=== PATIENT | female | born 1965 | race Hispanic/Latino ===

== ENCOUNTER 2018-07-19 11:00 | Emergency (ER) | payer OTHER ==
[~2018-07-19] VITALS: Ht 142.2 cm; Wt 42.6 kg
[~2018-07-19 11:00] MED LIST: Budesonide IH
[2018-07-19] MEDS ORDERED: BELLADONNA ALK/PHENOBARBITAL 5 ML UDC PO STA (11:22)
[2018-07-19] MEDS ORDERED: SODIUM CHLORIDE 0.9% 1000ML 1,000 ML IV STA (11:22)
[2018-07-19] MEDS ORDERED: PANTOPRAZOLE 40 MG 10ML VIAL IV STA (11:22)
[2018-07-19] MEDS ORDERED: MAGNESIUM/ALUMINUM/SIMETHICONE 30 ML UDC PO ONE (11:30)
[2018-07-19] MEDS ORDERED: LIDOCAINE VISC 2% SOLN 15 ML UDC PO ONE (11:30)
[2018-07-19] MEDS ORDERED: DIATRIZOATE MEGL/DIATRIZOA SOD 30 ML BTL PO ONE (11:36)
[2018-07-19 11:42] LABS: BASOPHILS % 0.2 % (0.0-1.0); HEMATOCRIT 37.2 % (34.2-44.1); HEMOGLOBIN 12.8 g/dL (12.0-16.0); LYMPHOCYTES # (AUTO) 0.5 (1.0-3.2); LYMPHOCYTES % 3.8 % (18.0-39.1); MEAN CORPUSCULAR HEMOGLOBIN 28.2 pg (28-32); MEAN CORPUSCULAR HGB CONC 34.4 g/dL (31-35); MEAN CORPUSCULAR VOLUME 81.9 fL (81-99); MONOCYTES # (AUTO) 0.8 (0.2-0.8); MONOCYTES % 6.7 % (4.4-11.3); NEUTROPHILS # (AUTO) 10.8 (2.1-6.9); NEUTROPHILS % 88.9 % (38.7-80.0); PLATELET COUNT 216 x10e3/uL (140-360); RED BLOOD COUNT 4.54 x10e6/uL (3.6-5.1); RED CELL DISTRIBUTION WIDTH 14.1 % (11.7-14.4)
[2018-07-19 12:12] LABS: ALANINE AMINOTRANSFERASE 1352 IU/L (0-55); ALBUMIN 4.3 g/dL (3.5-5.0); ALKALINE PHOSPHATASE 392 IU/L (40-150); ANION GAP 17.8 mmol/L (8-16); BLOOD UREA NITROGEN 27 mg/dL (7-26); BUN/CREATININE RATIO 32 (6-25); CALCIUM 10.9 mg/dL (8.4-10.2); CARBON DIOXIDE 23 mmol/L (22-29); CHLORIDE 103 mmol/L (98-107); CREATININE, SERUM 0.85 mg/dL (0.57-1.11); EST GLOMERULAR FILTRATION RATE > 60 ML/MIN (60-); GLUCOSE 164 mg/dL (74-118); POTASSIUM 3.8 mmol/L (3.5-5.1); SODIUM 140 mmol/L (136-145)
--- NOTE | 2018-07-19 12:21 | Diagnostic Imaging Report ---
EXAMINATION: CHEST SINGLE (PORTABLE) INDICATION: Fever COMPARISON: None FINDINGS: TUBES and LINES: None. LUNGS: Lungs are well inflated. Lungs are clear. There is no evidence of pneumonia or pulmonary edema. PLEURA: No pleural effusion or pneumothorax. HEART AND MEDIASTINUM: The cardiomediastinal silhouette is unremarkable. BONES AND SOFT TISSUES: No acute osseous lesion. Soft tissues are unremarkable. UPPER ABDOMEN: No free air under the diaphragm. IMPRESSION: No acute thoracic abnormality. No evidence of pneumonia. Signed by: Dr. Adam Wilson MD on 07/19/2018 12:17 PM
--- NOTE | 2018-07-19 13:15 | Diagnostic Imaging Report ---
EXAM: CT Abdomen and Pelvis WITH contrast INDICATION: Abdominal Pain COMPARISON: None. TECHNIQUE: Abdomen and pelvis were scanned utilizing a multidetector helical scanner from the lung base to the pubic symphysis after administration of IV contrast. Coronal and sagittal reformations were obtained. Routine protocol was performed. Scan was performed when during portal venous phase. IV CONTRAST: 100 mL of Isovue 370 ORAL CONTRAST: 30 cc of Gastrograffin and 870 cc of Water COMPLICATIONS: None RADIATION DOSE: Total DLP: (DLP x 0.015 x size factor) mGy*cm Estimated effective dose: (DLP x 0.015 x size factor) mSv CTDIvol has been reviewed. It is below the limits set by the Radiation Protocol Committee (RPC). FINDINGS: LINES and TUBES: None. LOWER THORAX: Unremarkable HEPATOBILIARY: No evidence of focal lesion. There is intra- and extra- hepatic biliary dilation likely secondary to post-cholecystectomy changes. SPLEEN: No splenomegaly. PANCREAS: No focal masses or ductal dilatation. ADRENALS: No adrenal nodules KIDNEYS/URETERS: Kidneys enhance symmetrically. No evidence of hydronephrosis, solid mass, or stone. GI TRACT: No evidence of wall thickening or distension. Appendix is not clearly identified. There is however no fat stranding or adenopathy in the right lower quadrant to suggest appendicitis. PELVIC ORGANS/BLADDER: Unremarkable. LYMPH NODES: No lymphadenopathy. VESSELS: There is moderate atherosclerotic disease in the aorta and major arterial branches. PERITONEUM / RETROPERITONEUM: No free air or fluid. BONES AND SOFT TISSUES: No acute bony findings. CONCLUSION: No acute findings in the abdomen or pelvis. Status post cholecystectomy. Signed by: Dr. Adam Wilson MD on 07/19/2018 1:12 PM
[2018-07-19] MEDS ORDERED: ONDANSETRON HCL INJ 2 MG/ML VIAL IV STA (13:21)
[2018-07-19 13:41] LABS: CLARITY,URINE SL CLOUDY (CLEAR); COLOR,URINE YELLOW (YELLOW); LEUKOCYTE ESTERASE ,URINE TRACE (NEGATIVE); NITRITE,URINE NEGATIVE (NEGATIVE); PROTEIN,URINE DIPSTICK 2+ (NEGATIVE)
[2018-07-19 13:42] LABS: BILIRUBIN,URINE 2+ (NEGATIVE); KETONES,URINE NEGATIVE (NEGATIVE); URINE UROBILINOGEN 1 mg/dL (0.2 - 1)
[2018-07-19 13:44] LABS: WBC,URINE (MAN) 0-5 /HPF (0-5)
[2018-07-19 13:45] LABS: BACTERIA,URINE MODERATE /HPF; EPITHELIAL CELLS,URINE MODERATE /LPF
[2018-07-19 13:48] LABS: AMYLASE 117 U/L (25-125); LIPASE 133 U/L (8-78)
--- NOTE | 2018-07-19 16:39 | Diagnostic Imaging Report ---
EXAM: MRI of the abdomen without contrast with MRCP INDICATION: Choledocholithiasis. COMPARISON: None. Correlation with CT abdomen dated 07/19/2018. TECHNIQUE: Multiplanar and multisequence imaging was performed of the abdomen. T1 and T2-weighted images were obtained with and without contrast. T1-weighted in and [id number]. Diffusion-weighted imaging was also performed. Primo technique: Multiplanar, multisequence MRCP was performed, with sequences including coronal turbo spin-echo T1-weighted scans, [facility] MRCP scans, coronal spin, coronal MPR 2, [facility], [facility] MRCP [place]. Discussion: LOWER THORAX: Unremarkable. HEPATOBILIARY: No focal hepatic lesions. Mild central intrahepatic biliary dilatation. Mild diffuse dilatation of the common duct up to 9.5 mm in diameter. No filling defects within the common hepatic or common bile ducts. No evidence of strictures. GALLBLADDER: Status post cholecystectomy. SPLEEN: No splenomegaly. PANCREAS: No focal masses or ductal dilatation. ADRENALS: No adrenal nodules KIDNEYS/URETERS: Kidneys enhance symmetrically. No hydronephrosis. No cystic or solid mass lesions. No stones. GI TRACT: No abnormal distention, wall thickening, or evidence of bowel obstruction. LYMPH NODES: No lymphadenopathy. VESSELS: Unremarkable. PERITONEUM / RETROPERITONEUM: No free air or fluid. BONES: Unremarkable. SOFT TISSUES: Unremarkable. IMPRESSION: Mild intra and extrahepatic biliary dilatation suggestive of reservoir status post cholecystectomy. No evidence of choledocholithiasis. Signed by: Dr. Tra Rosa M.D. on 07/19/2018 4:35 PM
[2018-07-19 17:11] VITALS: BP 162/77
[2018-07-19] MEDS ORDERED: IOPAMIDOL 370 MG/ML 200 ML INFUS..BTL INJ ONE (18:40)
[2018-07-19] MEDS ORDERED: SODIUM CHLORIDE 0.9% 50ML 50 ML ONE (18:40)
== END 2018-07-19 17:26 | disposition home or self-care (01) ==
LOC: ER 11:00
DX: R10.13 Epigastric pain (principal); R11.0 Nausea; K29.00 Acute gastritis without bleeding
CPT/HCPCS: 36415; 71045; 74177; 74181; 80053; 81001; 82150; 83690; 85025; 87040; 87071; 87086; 87186; 87205; 93005; 99284; J2405; J7030; Q9967

== ENCOUNTER 2019-07-18 13:10 | Emergency (ER) | payer OTHER ==
[~2019-07-18] VITALS: Ht 142.2 cm; Wt 42.6 kg
--- OUTSIDE RECORDS SUMMARY | 2019-07-18 13:14 | XMS REPORT ---
Author Author [facility] Address Unknown Phone Unavailable Care Team Providers Care Drier And Pulverizer Tender Name Role Phone Jair HESS Unavailable Unavailable Payers Payer Name Policy Type Policy Number Effective Date Expiration Date Problems This patient has no known problems. Allergies, Adverse Reactions, Alerts Allergy Name Allergy Type Status Severity Reaction(s) Onset Date Inactive Date Treating Clinician Comments No Known Allergies DA Active U 2019-07-09 00:00:00 No Known Allergies DA Active U 2016-06-06 00:00:00 Medications This patient has no known medications. Results Test Description Test Time Test Comments Text Results Atomic Results Result Comments - CT MAXIFAC W/CONTRAST 2019-07-09 11:40:00 Name: REBEL VELASQUEZ [facility] : 1965 Age/S: 54 / F [address] [facility]: [id number] Loc: [place] [address] Phys: Miesha Membreno NP Acct: [id number] Dis Date: Status: REG ER PHONE #: [phone] Exam Date: 07/09/2019 1130 FAX #: [phone] Reason: swelling of right side of lips and right maxill EXAMS: CPT CODE: [id number] CT MAXIFAC W/CONTRAST 49877 REASON FOR EXAM: swelling of right side of lips and right maxilla EXAM ORDER DATE: 07/09/2019 8:52 AM Ordering MAidan: Miesha Membreno NP PROCEDURE: - CT MAXIFAC W/CONTRAST FINDINGS: CT images of the face were obtained with IV contrast at 2.5 mm thickness. Dose modulation, iterative reconstruction, and/or weight based adjustment of the MA/KV was utilized to reduce the radiation dose to as low as reasonably achievable. The globes are intact. The orbital elliott are unremarkable. The nasal bone is unremarkable. The mandibles are within normal limits. No evidence of facial fracture The visualized paranasal sinuses are well aerated IMPRESSION: Minimal soft tissue swelling in the right upper lip. No evidence of abscess or enhancing lesion at 1140 Reported and signed by: Yeison Bahena M.D. CC: Miesha Membreno NP; Gayatri Vazquez MD; Ken Cha MD Technologist:Jamar Bo RT(R),(MR),(CT) CTDI: DLP: Trnscb Date/Time: 07/09/2019 (1140) t.SDR.VTL Orig Print D/T: S: 07/09/2019 (4982) PAGE 1 Signed Report BASIC METABOLIC PANEL 2019-07-09 11:06:00 SODIUM (test code=NA) 137 mmol/L 136-145 POTASSIUM (test code=K) 4.8 mmol/L 3.5-5.1 CHLORIDE (test code=CL) 108.0 mmol/L 98-107 CARBON DIOXIDE (test code=CO2) 24.0 mmol/L 21-32 ANION GAP (test code=GAP) 9.8 10-20 GLUCOSE (test code=GLU) 71 mg/dL 74-106 BLOOD UREA NITROGEN (test code=BUN) 27 mg/dL 7-18 GLOMERULAR FILTRATION RATE (test code=GFR) > 60 mL/min >=60 Estimated GFR by using Modified MDRD formula.Chronic kidney disease is defined as either kidney damageor GFR <60 mL/min/1.73 m2 for >3 months. CREATININE (test code=CREAT) 0.90 mg/dL 0.55-1.02 Note change in reference range due to change in reagent. BUN/CREATININE RATIO (test code=BUN/CREA) 30.0 10-20 CALCIUM (test code=CA) 9.3 mg/dL 8.5-10.1 BASIC METABOLIC [id number] 11:02:00* Test Item Value Reference Range Comments SODIUM (test code=NA) 137 mmol/L 136-145 POTASSIUM (test code=K) 4.8 mmol/L 3.5-5.1 CHLORIDE (test code=CL) 108.0 mmol/L 98-107 CARBON DIOXIDE (test code=CO2) mmol/L 21-32 ANION GAP (test code=GAP) 10-20 GLUCOSE (test code=GLU) mg/dL 74-106 BLOOD UREA NITROGEN (test code=BUN) mg/dL 7-18 GLOMERULAR FILTRATION RATE (test code=GFR) mL/min >=60 CREATININE (test code=CREAT) mg/dL 0.55-1.02 BUN/CREATININE RATIO (test code=BUN/CREA) 10-20 CALCIUM (test code=CA) mg/dL 8.5-10.1 CBC W/O [id number] 10:50:00* Test Item Value Reference Range Comments WHITE BLOOD CELL (test code=WBC) 7.9 K/mm3 4.5-12.5 RED BLOOD CELL (test code=RBC) 4.65 mill/mm3 3.7-5.2 HEMOGLOBIN (test code=HGB) 12.6 gram/dL 11.5-15.5 HEMATOCRIT (test code=HCT) 38.9 % 36.0-46.0 MEAN CELL VOLUME (test code=MCV) 83.7 fL 80-98 MEAN CELL HGB (test code=MCH) 27.1 picogram 27.0-33.0 MEAN CELL HGB CONCETRATION (test code=MCHC) 32.4 gram/dL 33.0-36.0 RED CELL DISTRIBUTION WIDTH (test code=RDW) 14.5 % 11.6-16.2 PLATELET COUNT (test code=PLT) 108 K/mm3 150-450 MEAN PLATELET VOLUME (test code=MPV) 12.8 fL 6.7-11.0 CBC W/O [id number] 10:49:00* Test Item Value Reference Range Comments WHITE BLOOD CELL (test code=WBC) K/mm3 4.5-12.5 RED BLOOD CELL (test code=RBC) mill/mm3 3.7-5.2 HEMOGLOBIN (test code=HGB) 12.6 gram/dL 11.5-15.5 HEMATOCRIT (test code=HCT) 38.9 % 36.0-46.0 MEAN CELL VOLUME (test code=MCV) fL 80-98 MEAN CELL HGB (test code=MCH) picogram 27.0-33.0 MEAN CELL HGB CONCETRATION (test code=MCHC) gram/dL 33.0-36.0 RED CELL DISTRIBUTION WIDTH (test code=RDW) % 11.6-16.2 PLATELET COUNT (test code=PLT) K/mm3 150-450 MEAN PLATELET VOLUME (test code=MPV) fL 6.7-11.0 [id number] 08:43:00* Test Item Value Reference Range Comments GLUBED (test code=GLUBED) 107 mg/dL 74-106 Performed by certified cnc router operator at [facility] MRI MRCP [id number] 16:25:00 [place] [address] Patient Name: REBEL VELASQUEZ MR #: [id number] : 1965 Age/Sex: 53/F Req #: [id number] Adm Physician: Ordered by: JACOBO HESS MD Report #: [id number] Location: ER Room/Bed: Procedure: [id number] MRI/MRI MRCP WO Exam Date: Exam Time: REPORT STATUS: Signed EXAM: MRI of the abdomen without contrast with MRCP INDICATION: Choledocholithias is. COMPARISON: None. Correlation with CT abdomen dated 07/19/2018. T ECHNIQUE: Multiplanar and multisequence imaging was performed of the abdomen. T1 and T2-weighted images were obtained with and without contrast. T1-weighted in and [id number]-[id number]. Diffusion-weighted imaging was also performed. M.R.C. P. technique: Multiplanar, multisequence MRCP was performed, with sequences in cluding coronal turbo spin-echo T1-weighted scans, [facility] MRCP scans, coronal spi n, coronal MPR 2, [facility]CP 3D HR, [facility] MRCP [place]. Discussion: LOWER THO RAX: Unremarkable. HEPATOBILIARY: No focal hepatic lesions. Mild stanley tral intrahepatic biliary dilatation. Mild diffuse dilatation of the common du ct up to 9.5 mm in diameter. No filling defects within the common hepatic or c ommon bile ducts. No evidence of strictures. GALLBLADDER: Status post cho lecystectomy. SPLEEN: No splenomegaly. PANCREAS: No focal masses or d uctal dilatation. ADRENALS: No adrenal nodules KIDNEYS/URETERS: Kidneys enhance symmetrically. No hydronephrosis. No cystic or solid mass les ions. No stones. GI TRACT: No abnormal distention, wall thickening, or radha dence of bowel obstruction. LYMPH NODES: No lymphadenopathy. VESSELS: Unremarkable. PERITONEUM / RETROPERITONEUM: No free air or fluid. BONES: Unremarkable. SOFT TISSUES: Unremarkable. IMPRE SSION: Mild intra and extrahepatic biliary dilatation suggestive of reservo ir status post cholecystectomy. No evidence of choledocholithiasis. Jadyn d by: Dr. Tra Pineda M.D. on 07/19/2018 4:35 PM Dictated By: ZACHARIAH PINEDA MD, MD 1 635 Transcribed By: RADHA on 07/19/18 1635 COPY TO: JACOBO HESS CT ABDOMEN/PELVIS [id number] 12:58:00 [place] [address] Patient Name: REBEL VELASQUEZ MR #: [id number] : 1965 Age/Sex: 53/F Req #: [id number] Adm Physician: Ordered by: JACOBO HESS MD Report #: [id number] Location: Room/Bed: Procedure: [id number] CT/CT ABDOMEN/PELVIS W Exam Da te: 07/19/18 Exam Time: 1230 REPORT STATUS: Sig henri EXAM: CT Abdomen and Pelvis WITH contrast INDICATION: Abdominal Pa in COMPARISON: None. TECHNIQUE: Abdomen and pelvis were scanned utilizing a multidetector helical scanner from the lung base to the pubic symphysis aft er administration of IV contrast. Coronal and sagittal reformations were obtai henri. Routine protocol was performed. Scan was performed when during portal gemma ous phase. IV CONTRAST: 100 mL of Isovue 370 ORAL CONTRAST: 30 cc of Gastrograffin and 870 cc of Water COMPLICATIONS: None RADIATION DOSE: Total DLP: (DLP x 0.015 x size factor) mGy*cm Estimated effective dose: (DLP x 0.015 x size factor) mSv CTDIvol has bee n reviewed. It is below the limits set by the Radiation Protocol Committee (RP C). FINDINGS: LINES and TUBES: None. LOWER THORAX: Unremarkable HEPATOBILIARY: No evidence of focal lesion. There is intra- and extra- hepatic biliary dilation likely secondary to post-cholecystectomy changes. SPLEEN: No splenomegaly. PANCREAS: No focal masses or ductal dilatation. ADRENALS: No adrenal nodules KIDNEYS/URETERS: Kidneys enhance symmetrical ly. No evidence of hydronephrosis, solid mass, or stone. GI TRACT: No ev idence of wall thickening or distension. Appendix is not clearly identified. T here is however no fat stranding or adenopathy in the right lower quadrant to suggest appendicitis. PELVIC ORGANS/BLADDER: Unremarkable. LYMPH NODE S: No lymphadenopathy. VESSELS: There is moderate atherosclerotic disease i n the aorta and major arterial branches. PERITONEUM / RETROPERITONEUM: No free air or fluid. BONES AND SOFT TISSUES: No acute bony findings. CO NCLUSION: No acute findings in the abdomen or pelvis. Status post cholec ystectomy. Signed by: Dr. Nikki Gillette MD on 07/19/2018 1:12 PM Dicta eladio By: NIKKI GILLETTE MD 1312 Transcribed By: RADHA on 07/19/18 1312 COPY TO: JACOBO HESS MD CHEST SINGLE (PORTABLE)2018-07-19 12:16:00 [facility] [address] [place] [address] Patient Name: REBEL VELASQUEZ MR #: [id number] : 1965 Age/Sex: 53/F Req #: [id number] Adm Physician: Ordered by: JACOBO HESS MD Report #: [id number] Location: ER Room/Bed: Procedure: [id number] DX/CHEST SINGLE (PORTABLE) Exa m Date: 07/19/18 Exam Time: 1110 REPORT STATUS: Signed EXAMINATION: CHEST SINGLE (PORTABLE) INDICATION: Fever COMPARISON: None FINDINGS: TUBES and LINES: None. LUNGS: Zachariah ngs are well inflated. Lungs are clear. There is no evidence of pneumonia o r pulmonary edema. PLEURA: No pleural effusion or pneumothorax. HEAR T AND MEDIASTINUM: The cardiomediastinal silhouette is unremarkable. B ONES AND SOFT TISSUES: No acute osseous lesion. Soft tissues are unremarkabl e. UPPER ABDOMEN: No free air under the diaphragm. IMPRESSION: No acute thoracic abnormality. No evidence of pneumonia. Signed by: Dr. Nikki Gillette MD on 07/19/2018 12:17 PM Dictated By: NIKKI GILLETTE MD Transcribed By: RADHA on 07/19/181216 COPY TO: JACOBO HESS MD
[2019-07-18 14:40] LABS: CLARITY,URINE SL CLOUDY (CLEAR); COLOR,URINE YELLOW (YELLOW); LEUKOCYTE ESTERASE ,URINE NEGATIVE (NEGATIVE); NITRITE,URINE NEGATIVE (NEGATIVE); URINE UROBILINOGEN 0.2 mg/dL (0.2 - 1)
[2019-07-18 14:41] LABS: BILIRUBIN,URINE NEGATIVE (NEGATIVE); KETONES,URINE NEGATIVE (NEGATIVE); PROTEIN,URINE DIPSTICK NEGATIVE (NEGATIVE)
[2019-07-18 14:53] LABS: BACTERIA,URINE MANY /HPF
[2019-07-18 15:03] LABS: BASOPHILS % 0.3 % (0.0-1.0); EOSINOPHILS # (AUTO) 0.5 (0.0-0.4); EOSINOPHILS % 4.1 % (0.0-6.0); HEMATOCRIT 32.9 % (34.2-44.1); HEMOGLOBIN 10.9 g/dL (12.0-16.0); LYMPHOCYTES # (AUTO) 1.1 (1.0-3.2); LYMPHOCYTES % 8.6 % (18.0-39.1); MEAN CORPUSCULAR HEMOGLOBIN 27.5 pg (28-32); MEAN CORPUSCULAR HGB CONC 33.1 g/dL (31-35); MEAN CORPUSCULAR VOLUME 82.9 fL (81-99); MONOCYTES # (AUTO) 0.6 (0.2-0.8); MONOCYTES % 4.7 % (4.4-11.3); NEUTROPHILS # (AUTO) 10.5 (2.1-6.9); NEUTROPHILS % 81.9 % (38.7-80.0); PLATELET COUNT 211 x10e3/uL (140-360); RED BLOOD COUNT 3.97 x10e6/uL (3.6-5.1); RED CELL DISTRIBUTION WIDTH 13.6 % (11.7-14.4)
--- NOTE | 2019-07-18 15:09 | Diagnostic Imaging Report ---
EXAMINATION: CHEST 2 VIEWS INDICATION: Chest pain COMPARISON: None FINDINGS: LINES/TUBES:None LUNGS:The lungs are well-inflated. No focal consolidation or pulmonary edema. PLEURA:No pleural effusion or pneumothorax. MEDIASTINUM:The cardiomediastinal silhouette appears normal in size and shape. BONES/SOFT TISSUES:No acute osseous injury. ABDOMEN:No free air under the diaphragm. IMPRESSION: No focal pneumonia or pulmonary edema. Signed by: Nathalia Gloria MD on 07/18/2019 3:05 PM
[2019-07-18 15:21] LABS: ALANINE AMINOTRANSFERASE 26 IU/L (0-55); ALBUMIN 3.3 g/dL (3.5-5.0); ALBUMIN/GLOBULIN RATIO 0.9 (0.8-2.0); ALKALINE PHOSPHATASE 107 IU/L (40-150); ANION GAP 11.7 mmol/L (8-16); BLOOD UREA NITROGEN 29 mg/dL (7-26); BUN/CREATININE RATIO 32 (6-25); CALCIUM 9.8 mg/dL (8.4-10.2); CARBON DIOXIDE 25 mmol/L (22-29); CHLORIDE 104 mmol/L (98-107); CREATINE KINASE 46 IU/L (29-168); CREATININE, SERUM 0.91 mg/dL (0.57-1.11); EST GLOMERULAR FILTRATION RATE > 60 ML/MIN (60-); GLUCOSE 94 mg/dL (74-118); MAGNESIUM 1.7 MG/DL (1.3-2.1); POTASSIUM 3.7 mmol/L (3.5-5.1); SODIUM 137 mmol/L (136-145)
[2019-07-18 15:39] LABS: AMYLASE 156 U/L (25-125); LIPASE 39 U/L (8-78)
[2019-07-18] MEDS ORDERED: CEFDINIR300 MG PO (16:50)
[2019-07-18 17:20] VITALS: BP 134/70
== END 2019-07-18 17:17 | disposition home or self-care (01) ==
LOC: ER 13:10
DX: R10.13 Epigastric pain (principal); N30.91 Cystitis, unspecified with hematuria
CPT/HCPCS: 36415; 71046; 80053; 81001; 82150; 82550; 82553; 83690; 83735; 84484; 85025; 93005; 99284